=== PATIENT | male | born 1970 | race Asian ===

== ENCOUNTER 2016-08-12 09:13 | Emergency (ER) | payer BC, OTHER ==
[~2016-08-12] VITALS: Ht 172.7 cm; Wt 97.0 kg
[2016-08-12] MEDS ORDERED: ACET-2744 PO (09:17)
[2016-08-12] MEDS ORDERED: HYDROCODONE/ACETAMINOPHEN 10-325 MG TABLET PO ONE (10:45)
[2016-08-12 11:10] VITALS: BP 142/95
== END 2016-08-12 11:27 | disposition home or self-care (01) ==
LOC: EMS 09:20
DX: M54.32 Sciatica, left side (principal); F17.210 Nicotine dependence, cigarettes, uncomplicated
CPT/HCPCS: 99283

== ENCOUNTER 2023-05-11 12:30 | Inpatient (IN) | payer OTHER ==
[~2023-05-11] VITALS: Ht 165.1 cm; Wt 83.2 kg
[~2023-05-11 12:30] MED LIST: ACET-2744 PO
[2023-05-11 13:11] LABS: BASOPHILS % (AUTO) 0.9 % (0.0-2.0); EOSINOPHILS % (AUTO) 1.1 % (1.0-6.0); HEMATOCRIT 48.6 % (41-53); HEMOGLOBIN 16.5 g/dL (13.5-17.5); LYMPHOCYTES # (AUTO) 2.7 K/uL (1.0-4.8); LYMPHOCYTES % (AUTO) 29.8 % (22.0-44.0); MEAN CORPUSCULAR HEMOGLOBIN 31.1 pg (26.0-34.0); MEAN CORPUSCULAR VOLUME 91 fL (80-100); MONOCYTES # (AUTO) 0.6 K/uL (0.1-1.0); NEUTROPHILS # (AUTO) 5.6 K/uL (1.8-7.7); NEUTROPHILS % (AUTO) 61.2 % (40.0-70.0); PLATELET COUNT (AUTO) 260 K/uL (150-450); RED BLOOD CELL COUNT(AUTO) 5.32 MIL/uL (4.50-5.90); RED CELL DISTRIBUTION WIDTH 13.5 % (11.5-14.5); WHITE BLOOD COUNT (AUTO) 9.1 K/uL (4.5-11.0)
[2023-05-11 13:21] LABS: ANION GAP 11 mmol/L (8-16); CARBON DIOXIDE 26 mmol/L (22-29); CHLORIDE 98 mmol/L (98-107); CREATININE 1.02 mg/dL (0.60-1.30); GLOMERULAR FILTR. RATE CALC > 60 mL/min (>60); GLUCOSE,RANDOM 255 mg/dL (70-110); SODIUM SERUM 135 mmol/L (136-145); UREA NITROGEN, BLOOD 14 mg/dL (7-18)
[2023-05-11 13:27] LABS: ALANINE AMINOTRANSFERASE 29 U/L (12-78); ALKALINE PHOSPHATASE 78 U/L (46-116); ASPARTATE AMINOTRANSFERASE 15 U/L (15-37); BILIRUBIN,TOTAL 0.6 mg/dL (0.1-1.0); TOTAL PROTEIN, SERUM 8.6 g/dL (6.4-8.2)
[2023-05-11 13:31] LABS: TROPONIN I-HIGH SENSITIVITY 28 ng/L (<76)
[2023-05-11 13:40] LABS: B-TYPE NATRIURETIC PEPTIDE 7 pg/mL (0-100); LIPASE 27 U/L (16-77)
[2023-05-11 14:38] LABS: PROTHROMBIN TIME 10.9 SEC (9.4-11.6)
[2023-05-11 14:51] LABS: CREATINE KINASE, TOTAL ONLY 202 U/L (39-308)
[2023-05-11 14:55] LABS: TROPONIN I-HIGH SENSITIVITY 123 ng/L (<76)
[2023-05-11] MEDS ORDERED: HEPARIN SODIUM,PORCINE 5,000 UNITS/ML VIAL IVP ONE ×2 (15:15)
[2023-05-11] MEDS ORDERED: HEPARIN SODIUM 25000 UNITS/D5W 250 ML IV PRN (15:15)
[2023-05-11] MEDS ORDERED: NITROGLYCERIN 2% (1 GM=INCH) OINTMENT PACKET TP ONE (15:15)
[2023-05-11] MEDS ORDERED: ASPIRIN 325 MG TABLET PO ONE (15:15)
[2023-05-11] MEDS ORDERED: HEPARIN SODIUM,PORCINE 5,000 UNITS/ML VIAL IVP PRN ×2 (15:15)
[2023-05-11 15:41] LABS: INR 1.1 (0.9-1.1); PROTHROMBIN TIME 11.2 SEC (9.4-11.6)
[2023-05-11 16:10] LABS: TROPONIN I-HIGH SENSITIVITY 298 ng/L (<76)
[2023-05-11 16:19] LABS: COVID AG,FIA SOURCE NASAL SWAB
[2023-05-11] MEDS ORDERED: NITROGLYCERIN 0.4 MG SUBLINGUAL TABLET #25 SL PRN (16:30)
[2023-05-11] MEDS ORDERED: HYDROCODONE/ACETAMINOPHEN 5-325 MG TABLET PO PRN (16:45)
[2023-05-11] MEDS ORDERED: ZOLPIDEM TARTRATE 5 MG TABLET PO PRN (16:45)
[2023-05-11] MEDS ORDERED: ONDANSETRON HCL 4 MG/2 ML VIAL IVP PRN (16:45)
[2023-05-11] MEDS ORDERED: MAGNESIUM HYDROXIDE SUSPENSION 30 ML UDCUP PO PRN (16:45)
[2023-05-11] MEDS ORDERED: ACETAMINOPHEN 325 MG TABLET PO PRN (16:45)
[2023-05-11] MEDS ORDERED: BISACODYL 10 MG RECTAL RECTAL SUPPOSITORY PR PRN (16:45)
[2023-05-11] MEDS ORDERED: MORPHINE SULFATE 2 MG/ML SYRINGE IVP PRN (16:45)
[2023-05-11 16:48] LABS: SARS-COV2 (COVID) ANTIGEN,FIA Negative (Negative)
[2023-05-11] MEDS ORDERED: DEXTROSE 50%-WATER 25 GM/50 ML SYRINGE IVP PRN (17:00)
[2023-05-11] MEDS: ATORVASTATIN CALCIUM 40 MG TABLET PO SCH (17:05)
[2023-05-11 17:33] LABS: APPEARANCE,URINE CLEAR (CLEAR); BILIRUBIN,URINE NEGATIVE (NEGATIVE); COLOR,URINE LIGHT YELLOW (YELLOW); GLUCOSE, URINE (UA) 300-500 mg/dL (NEGATIVE); KETONES,URINE TRACE mg/dL (NEGATIVE); LEUKOCYTE ESTERASE ,URINE NEGATIVE (NEGATIVE); NITRATE,URINE NEGATIVE (NEGATIVE); OCCULT BLOOD,URINE NEGATIVE (NEGATIVE); PROTEIN,URINE 30-70 mg/dL (NEGATIVE); SPECIFIC GRAVITIY, URINE 1.009 (1.003-1.030); UROBILINOGEN,URINE <=1.0 mg/dL (<=1.0)
[2023-05-11 17:48] LABS: BACTERIA,URINE None Seen /HPF (None Seen); RBC,URINE None Seen /HPF (0-2); WBC,URINE 0-2 /HPF (0-5)
[2023-05-11] MEDS: INSULIN LISPRO 100 UNITS/ML SQ PRN (18:59)
[2023-05-11 19:06] LABS: GLUCOMETER DEV NAME(LOC) ER.6; GLUCOSE,POINT OF CARE 253 MG/DL (70-110)
[2023-05-11] MEDS: METOPROLOL TARTRATE 25 MG TABLET PO SCH (20:35)
[2023-05-11] MEDS: DOCUSATE SODIUM 100 MG CAPSULE PO SCH (20:35)
[2023-05-11 21:38] VITALS: BP 132/84; PULSE 88; RESP 17; TEMP 98.5; O2SAT 99
[2023-05-12] VITALS (17 sets, daily range): BP systolic 122–154; BP diastolic 75–95; PULSE 6–85; RESP 17–19; TEMP 97.9–98.6; O2SAT 99
[2023-05-12] MEDS ORDERED: HEPARIN SODIUM,PORCINE 5,000 UNITS/ML VIAL SQ SCH
[2023-05-12] MEDS ORDERED: INFLUENZA VIRUS VACCINE QVS 2023-24 (6MO+)/PF 60 MCG/0.5 ML SYRINGE IM. ONE (02:45)
[2023-05-12] MEDS: INSULIN LISPRO 100 UNITS/ML SQ PRN ×4 (06:27→20:36)
[2023-05-12 07:16] LABS: BASOPHILS % (AUTO) 1.1 % (0.0-2.0); GLUCOMETER DEV NAME(LOC) 5S.2C; GLUCOSE,POINT OF CARE 220 MG/DL (70-110); HEMATOCRIT 47.2 % (41-53); HEMOGLOBIN 16.2 g/dL (13.5-17.5); LYMPHOCYTES # (AUTO) 3.2 K/uL (1.0-4.8); MEAN CORPUSCULAR HEMOGLOBIN 31.3 pg (26.0-34.0); MEAN CORPUSCULAR HGB CONC 34.3 G/dL (31.0-37.0); MEAN CORPUSCULAR VOLUME 91 fL (80-100); MONOCYTES # (AUTO) 0.6 K/uL (0.1-1.0); MONOCYTES % (AUTO) 6.6 % (2.0-9.0); NEUTROPHILS # (AUTO) 5.2 K/uL (1.8-7.7); NEUTROPHILS % (AUTO) 56.3 % (40.0-70.0); PLATELET COUNT (AUTO) 259 K/uL (150-450); RED BLOOD CELL COUNT(AUTO) 5.17 MIL/uL (4.50-5.90); RED CELL DISTRIBUTION WIDTH 13.6 % (11.5-14.5); WHITE BLOOD COUNT (AUTO) 9.3 K/uL (4.5-11.0)
[2023-05-12 07:37] LABS: CHOL/HDL RATIO 3.7 (4.2-7.3)
[2023-05-12 07:44] LABS: TROPONIN I-HIGH SENSITIVITY 14347 ng/L (<76)
[2023-05-12 07:48] LABS: ANION GAP 11 mmol/L (8-16); CALCIUM, TOTAL 8.7 mg/dL (8.8-10.5); CARBON DIOXIDE 25 mmol/L (22-29); CHLORIDE 101 mmol/L (98-107); CREATININE 0.86 mg/dL (0.60-1.30); GLOMERULAR FILTR. RATE CALC > 60 mL/min (>60); GLUCOSE,RANDOM 205 mg/dL (70-110); POTASSIUM 3.9 mmol/L (3.5-5.1); SODIUM SERUM 137 mmol/L (136-145); UREA NITROGEN, BLOOD 12 mg/dL (7-18)
[2023-05-12 07:59] LABS: HEMOGLOBIN A1C 9.9 % (3.8-5.6)
[2023-05-12 08:25] LABS: THYROID STIMULATING HORMONE 0.89 uIU/mL (0.36-3.74)
[2023-05-12] MEDS: DOCUSATE SODIUM 100 MG CAPSULE PO SCH ×2 (08:33→20:28)
[2023-05-12] MEDS: ASPIRIN 81 MG CHEWABLE TABLET PO SCH (08:33)
[2023-05-12] MEDS: PANTOPRAZOLE SODIUM 40 MG DR TABLET PO SCH (08:34)
[2023-05-12] MEDS: ATORVASTATIN CALCIUM 40 MG TABLET PO SCH (08:34)
[2023-05-12] MEDS: METOPROLOL TARTRATE 25 MG TABLET PO SCH ×2 (08:34→20:28)
[2023-05-12] MEDS ORDERED: LIDOCAINE/PF 1% 30 ML VIAL ONE (09:10)
[2023-05-12] MEDS ORDERED: SODIUM BICARBONATE 50 MEQ/50 ML VIAL ONE (09:10)
[2023-05-12] MEDS ORDERED: IOHEXOL 300 MG/ML 100 ML VIAL ONE (09:10)
[2023-05-12] MEDS ORDERED: HEPARIN SODIUM 1000 UNITS/NS 1,000 ML ONE (09:11)
[2023-05-12] MEDS ORDERED: NITROGLYCERIN 50 MG/D5% WATER 250 ML ONE (09:34)
[2023-05-12] MEDS ORDERED: VERAPAMIL HCL 2.5 MG/ML 2 ML VIAL ONE (09:34)
[2023-05-12] MEDS ORDERED: FentaNYL CITRATE PF 100 MCG/2 ML VIAL ONE (09:42)
[2023-05-12] MEDS ORDERED: MIDAZOLAM HCL 2 MG/2 ML VIAL ONE (09:42)
[2023-05-12] MEDS ORDERED: LIDOCAINE 1% 30 ML/SOD BICARB 8.4% 4 ML SQ ONE (09:45)
[2023-05-12] MEDS ORDERED: HEPARIN SODIUM,PORCINE 1,000 UNITS/ML 10 ML VIAL IARTER ONE (09:45)
[2023-05-12] MEDS ORDERED: NITROGLYCERIN/D5W 50 MG/250 ML IV BOTTLE IARTER ONE (09:45)
[2023-05-12] MEDS ORDERED: HEPARIN SODIUM 1000 UNITS/NS 1,000 ML IARTER ONE (09:45)
[2023-05-12] MEDS ORDERED: IOHEXOL 300 MG/ML 100 ML VIAL IARTER ONE (09:45)
[2023-05-12] MEDS ORDERED: VERAPAMIL HCL 2.5 MG/ML 2 ML VIAL IARTER ONE (09:45)
[2023-05-12] MEDS ORDERED: MIDAZOLAM HCL 2 MG/2 ML VIAL IVP ONE (10:00)
[2023-05-12] MEDS ORDERED: FentaNYL CITRATE PF 100 MCG/2 ML VIAL IVP ONE (10:00)
[2023-05-12] MEDS ORDERED: ASPIRIN 81 MG CHEWABLE TABLET ONE (10:29)
[2023-05-12] MEDS ORDERED: TICAGRELOR 90 MG TABLET PO ONE (10:30)
[2023-05-12] MEDS ORDERED: HEPARIN SODIUM,PORCINE 1,000 UNITS/ML 10 ML VIAL IVP ONE (10:30)
[2023-05-12] MEDS ORDERED: ASPIRIN 81 MG CHEWABLE TABLET PO ONE (10:30)
[2023-05-12 12:36] LABS: GLUCOMETER DEV NAME(LOC) 5S.1B; GLUCOSE,POINT OF CARE 191 MG/DL (70-110)
[2023-05-12 18:07] LABS: GLUCOMETER DEV NAME(LOC) 5S.2C; GLUCOSE,POINT OF CARE 250 MG/DL (70-110)
[2023-05-12] MEDS: TICAGRELOR 90 MG TABLET PO SCH (20:28)
[2023-05-13 00:39] VITALS: BP 122/76; PULSE 70; RESP 18; TEMP 97.5
[2023-05-13 05:06] VITALS: BP 135/84; PULSE 64; RESP 18; TEMP 97.9
[2023-05-13 05:32] LABS: GLUCOMETER DEV NAME(LOC) 5S.1B; GLUCOSE,POINT OF CARE 176 MG/DL (70-110)
[2023-05-13] MEDS: INSULIN LISPRO 100 UNITS/ML SQ PRN ×2 (06:19→12:37)
[2023-05-13 06:59] LABS: BASOPHILS % (AUTO) 0.7 % (0.0-2.0); EOSINOPHILS % (AUTO) 2.2 % (1.0-6.0); HEMATOCRIT 48.9 % (41-53); HEMOGLOBIN 16.6 g/dL (13.5-17.5); LYMPHOCYTES # (AUTO) 2.4 K/uL (1.0-4.8); MEAN CORPUSCULAR HEMOGLOBIN 31.6 pg (26.0-34.0); MEAN CORPUSCULAR HGB CONC 34.1 G/dL (31.0-37.0); MEAN CORPUSCULAR VOLUME 93 fL (80-100); MONOCYTES # (AUTO) 0.7 K/uL (0.1-1.0); MONOCYTES % (AUTO) 8.1 % (2.0-9.0); NEUTROPHILS # (AUTO) 5.2 K/uL (1.8-7.7); PLATELET COUNT (AUTO) 257 K/uL (150-450); RED BLOOD CELL COUNT(AUTO) 5.27 MIL/uL (4.50-5.90); RED CELL DISTRIBUTION WIDTH 13.9 % (11.5-14.5); WHITE BLOOD COUNT (AUTO) 8.6 K/uL (4.5-11.0)
[2023-05-13 07:24] LABS: TROPONIN I-HIGH SENSITIVITY 5779 ng/L (<76)
[2023-05-13 07:29] VITALS: BP 140/82; PULSE 69; RESP 18; TEMP 98
[2023-05-13 07:45] LABS: ANION GAP 7 mmol/L (8-16); CALCIUM, TOTAL 9.1 mg/dL (8.8-10.5); CARBON DIOXIDE 28 mmol/L (22-29); CHLORIDE 102 mmol/L (98-107); CREATININE 1.02 mg/dL (0.60-1.30); GLOMERULAR FILTR. RATE CALC > 60 mL/min (>60); GLUCOSE,RANDOM 186 mg/dL (70-110); POTASSIUM 4.6 mmol/L (3.5-5.1); SODIUM SERUM 137 mmol/L (136-145); UREA NITROGEN, BLOOD 16 mg/dL (7-18)
[2023-05-13] MEDS ORDERED: ATORVASTATIN CALCIUM 40 MG TABLET PO SCH (09:00)
[2023-05-13] MEDS: METOPROLOL TARTRATE 25 MG TABLET PO SCH (09:09)
[2023-05-13] MEDS: PANTOPRAZOLE SODIUM 40 MG DR TABLET PO SCH (09:09)
[2023-05-13] MEDS: ASPIRIN 81 MG CHEWABLE TABLET PO SCH (09:09)
[2023-05-13] MEDS: TICAGRELOR 90 MG TABLET PO SCH (09:09)
[2023-05-13] MEDS: DOCUSATE SODIUM 100 MG CAPSULE PO SCH (09:10)
[2023-05-13 11:31] VITALS: BP 130/75; PULSE 60; RESP 18; TEMP 97.7
[2023-05-13 11:56] LABS: GLUCOMETER DEV NAME(LOC) 5N.1C; GLUCOSE,POINT OF CARE 197 MG/DL (70-110)
[2023-05-13] MEDS ORDERED: METO25 PO (12:54)
[2023-05-13] MEDS ORDERED: ATOR40TA71 PO ×2 (12:54→13:03)
[2023-05-13] MEDS ORDERED: TICA90TA PO (12:54)
[2023-05-13] MEDS ORDERED: PANT-31 PO (12:54)
[2023-05-13] MEDS ORDERED: ASPI81 PO (12:54)
[2023-05-13] MEDS ORDERED: METF-1211 PO (13:05)
[2023-05-13 13:21] LABS: GLUCOMETER DEV NAME(LOC) 5N.1C; GLUCOSE,POINT OF CARE 201 MG/DL (70-110)
[2023-05-13] MEDS ORDERED: LOSA-417 PO (15:10)
[2023-05-13 15:19] VITALS: BP 126/71; PULSE 66; RESP 18; TEMP 98
[2023-05-14] MEDS ORDERED: LOSARTAN POTASSIUM 25 MG TABLET PO SCH (09:00)
== END 2023-05-13 16:51 | disposition home or self-care (01) | DRG 322 ==
LOC: EMS 13:08 → AHU 16:31 → 5S 18:37
PROVIDERS: ADMIT Internal Medicine; ATTEND Internal Medicine
PROC: 027034Z Dilation of Coronary Artery, One Artery with Drug-eluting Intraluminal Device, Percutaneous Approach (ICD-10-PCS; principal; 2023-05-12)
PROC: 4A023N7 Measurement of Cardiac Sampling and Pressure, Left Heart, Percutaneous Approach (ICD-10-PCS; 2023-05-12)
PROC: B2111ZZ Fluoroscopy of Multiple Coronary Arteries using Low Osmolar Contrast (ICD-10-PCS; 2023-05-12)
DX: I21.4 Non-ST elevation (NSTEMI) myocardial infarction (principal); E78.5 Hyperlipidemia, unspecified; I16.0 Hypertensive urgency; Z20.822 Contact with and (suspected) exposure to COVID-19; F17.210 Nicotine dependence, cigarettes, uncomplicated; I25.10 Atherosclerotic heart disease of native coronary artery without angina pectoris; E11.65 Type 2 diabetes mellitus with hyperglycemia; F10.90 Alcohol use, unspecified, uncomplicated; I10 Essential (primary) hypertension; Z79.899 Other long term (current) drug therapy
CPT/HCPCS: 70450; 71045; 80048; 80053; 80061; 81001; 81003; 82550; 82962; 83036; 83690; 83880; 84443; 84484; 85025; 85610; 85730; 90686; 92920; 92928; 93005; 93306; 99291; G0378; J1644; J1815; J2250; J3010; J3490; Q9967; 36415-L1; 36415-TC; G0008; Z7610